=== PATIENT | female | born 1955 | race Caucasian/White ===

== ENCOUNTER 2019-03-28 06:41 | Day surgery (SDC) | payer BC ==
[2019-03-28] MEDS ORDERED: PROPOFOL 10 MG/ML VIAL IV ONE (06:42)
[2019-03-28] MEDS ORDERED: LIDOCAINE 2% MDV (20MG/ML) 20ML VIAL IV ONE (06:42)
[2019-03-28 09:09] LABS: ABSOLUTE NEUTROPHIL COUNT 4.63; BASO % 0.5 % (0-6); EOS % 4.3 % (0-6); GRAN % 57.2 % (47-80); HEMATOCRIT 45.8 % (35.0-47.0); HEMOGLOBIN 15.4 gm/dl (11.6-16.0); LYMPH % 30.2 % (16-45); MEAN CELL VOLUME 93.7 fl (81-97); MEAN CORPUSCULAR HEMOGLOBIN 31.5 pg (27-33); MEAN CORPUSCULAR HGB CONC 33.6 g/dl (32-36); MEAN PLATELET VOLUME 10.9 fl (7.4-10.4); MONO % 7.8 % (0-9); PLATELET COUNT 282 K/uL (130-400); RED BLOOD COUNT 4.89 M/uL (3.80-5.40); RED CELL DISTRIBUTION WIDTH 13.6 % (11.5-14.5); WHITE BLOOD COUNT W/O DIFF 8.1 K/uL (4.2-12.2)
[2019-03-28 09:14] LABS: ALB/GLOB RATIO 1.7 (1.1-1.8); ALBUMIN 4.9 g/dL (4.0-5.0); ALKALINE PHOSPHATASE 82 U/L (35-104); ALT/SGPT 20 U/L (<33); AST/SGOT 17 U/L (10.0-35.0); BLOOD UREA NITROGEN 6 mg/dL (8-23); CHOLESTEROL 156 mg/dL (<200); CREATININE 0.6 mg/dL (0.5-0.9); EST GLOMERULAR FILTRATION RATE > 60 mL/min; GLUCOSE,RANDOM 147 mg/dL (74-109); HDL CHOLESTEROL 39 mg/dL (40-60); TOTAL PROTEIN 7.8 g/dL (6.6-8.7); TRIGLYCERIDES 166 mg/dL (<150); VLDL CHOLESTEROL 33 mg/dL (10.00-40.00)
[2019-03-28 09:25] LABS: THYROID STIMULATING HORMONE 2.01 uIU/mL (0.270-4.20)
--- NOTE | 2019-04-01 08:10 | Operative Note ---
SURGEON: Alexandre Mejía MD OPERATION: COLONOSCOPY. INDICATIONS: This is a 63-year-old female with average risk for colorectal cancer who presented for her first screening colonoscopy. POSTOPERATIVE DIAGNOSES: 1. Three 5-6 mm sessile rectal polyps that were removed by cold snare. 2. Otherwise normal colon and terminal ileum. ANESTHESIA: Sedation is per Anesthesia. Pulse oximetry was monitored throughout the procedure to maintain O2 saturation of 90% or greater. Supplemental oxygen was administered via nasal cannula. Cardiac and vital signs were monitored throughout the duration of the procedure, and they were stable. The procedure of colonoscopy and risks and alternatives of the procedure, including the risk of bleeding and perforation, among others, were explained to the patient who voiced understanding and agreed to have the procedure done. Physical examination was performed, and the patient was found stable for sedation. PROCEDURE: The patient was placed in the left lateral position. Sedation was initiated. A digital rectal exam was performed and showed some mild external hemorrhoids with no palpable rectal masses. An Olympus PCF-180AL colonoscope was then inserted into the rectum under direct visualization. It was advanced to the cecum without difficulty. The ileocecal valve and appendiceal orifice were identified and photographed. The colonic mucosa was carefully examined upon introduction of the colonoscope. There were no lesions noted. The ileocecal valve was intubated and terminal ileal mucosa was inspected for about 10 cm and it appeared normal. The colonoscope was then withdrawn while carefully examining the colonic mucosal surfaces. The bowel preparation was good. The cecum, ascending colon, transverse colon, descending colon, and sigmoid colon mucosa appeared normal. In the rectum were three 5-6 mm sessile polyps that were noted and they were removed by cold snare. The colonoscope was then withdrawn and the procedure was terminated. The patient tolerated the procedure well without any immediate complications. The patient remained with stable vital signs and was transferred to the recovery room. RECOMMENDATIONS: 1. The patient should be on a high-fiber diet. 2. The patient is to have a repeat colonoscopy for surveillance in 3 or 5 or 10 years depending on the histology of the polyps. Thank you for allowing me to participate in the care of your patient. [facility]
== END 2019-03-28 08:45 | disposition home or self-care (01) ==
LOC: HOP 06:41
PROVIDERS: ATTEND Internal Medicine Gastroenterology
DX: Z12.11 Encounter for screening for malignant neoplasm of colon (principal); D12.8 Benign neoplasm of rectum; E11.65 Type 2 diabetes mellitus with hyperglycemia; I10 Essential (primary) hypertension; E78.5 Hyperlipidemia, unspecified; E55.9 Vitamin D deficiency, unspecified; E78.00 Pure hypercholesterolemia, unspecified; Z79.899 Other long term (current) drug therapy; Z51.81 Encounter for therapeutic drug level monitoring
CPT/HCPCS: 80053; 80061; 82306; 83036; 84439; 84443; 85025